=== PATIENT | female | born 1980 | race American Indian/Alaskan Native ===

== ENCOUNTER 2019-11-06 20:07 | Emergency (ER) | payer MEDICARE ==
--- NOTE | 2019-11-06 21:40 | Emergency Department Report ---
Blank Doc - Documentation Documentation: 39-year-old female that presents with bilateral leg swelling and chest pain. Denies any SOB This initial assessment/diagnostic orders/clinical plan/treatment(s) is/are subject to change based on patient's health status, clinical progression and re- assessment by fellow clinical providers in the ED. Further treatment and workup at subsequent clinical providers discretion. Patient/guardians urged not to elope from the ED as their condition may be serious if not clinically assessed and managed. Initial orders include: 1- Patient sent to MAIN ED for further evaluation and treatment 2- cardiac protocol
[2019-11-06 22:13] LABS: Basophils # (Auto) 0.1 K/mm3 (0.0-0.1); Basophils % (Auto) 0.9 % (0.0-1.8); Eosinophils # (Auto) 0.3 K/mm3 (0.0-0.4); Eosinophils % (Auto) 4.1 % (0.0-4.3); Hematocrit 34.2 % (30.3-42.9); Hemoglobin 11.3 gm/dl (10.1-14.3); Lymphocytes # (Auto) 2.5 K/mm3 (1.2-5.4); Lymphocytes % (Auto) 33.1 % (13.4-35.0); Mean Corpuscular HGB Conc 33 % (30-34); Mean Corpuscular Volume 94 fl (79-97); Monocytes # (Auto) 0.7 K/mm3 (0.0-0.8); Monocytes % (Auto) 9.6 % (0.0-7.3); Platelet Count 254 K/mm3 (140-440); Red Blood Count 3.64 M/mm3 (3.65-5.03); Red Cell Distribution Width 13.1 % (13.2-15.2)
[2019-11-06 22:23] LABS: INR 0.9 (0.87-1.13)
[2019-11-06 22:24] LABS: Partial Thromboplastin Time 27.8 Sec. (24.2-36.6)
[2019-11-06 22:36] LABS: Alanine Aminotransferase 17 units/L (7-56); Albumin 3.7 g/dL (3.9-5); BUN/Creatinine Ratio 11; Blood Urea Nitrogen 8 mg/dL (7-17); Calcium 9.1 mg/dL (8.4-10.2); Hemolysis Index 19
[2019-11-06 23:10] LABS: Bacteria,Urine 1+ /HPF (Negative); Bilirubin,Urine NEG (Negative); Blood,Urine NEG (Negative); Color,Urine Yellow (Yellow); Mucus,Urine FEW /HPF; Protein,Urine <15 mg/dL mg/dL (Negative); Urobilinogen,Urine < 2.0 mg/dL (<2.0)
--- NOTE | 2019-11-07 00:06 | XRay Report ---
CHEST 1 VIEW 11/06/2019 10:58 PM INDICATION / CLINICAL INFORMATION: Chest Pain. COMPARISON: None available. FINDINGS: SUPPORT DEVICES: None. HEART / MEDIASTINUM: No significant abnormality. LUNGS / PLEURA: There is left basilar atelectasis. The lungs are otherwise clear. No significant pleu ral effusion. No pneumothorax. ADDITIONAL FINDINGS: No significant additional findings. IMPRESSION: 1. No acute abnormality of the chest. 2. Left basilar atelectasis. Signer Name: Bruno Jiang MD Signed: 11/07/2019 12:02 AM Workstation Name: [id number]
--- NOTE | 2019-11-07 01:15 | Emergency Department Report ---
ED General Adult HPI - General Chief complaint: Extremity Injury, Lower Stated complaint: RT AND LT LEG SWELLING W/PAIN Time Seen by Provider: 11/06/19 21:38 Source: patient, EMS, RN notes reviewed, old records reviewed Mode of arrival: Ambulatory Limitations: No Limitations, Physical Limitation - History of Present Illness Initial comments: During the history and physical examination, I am windows application administrator and escorted by sary Esquivel, curriculum development coordinator The patient is a 39-year-old female. The patient is not known to myself previously. She is currently on a [employer] 1013 hold. She has a history of obesity, sleep apnea, possible substance use, possible hypertension versus dependent edema. The patient presents to the ER with a complaint of nontraumatic bilateral lower extremity pain and swelling. The symptoms have been present for the past day to day and a half. She describes her pain as sharp and throbbing. She describes pain in her bilateral feet, and bilateral lower extremities. She also describes left upper quadrant, and central chest pressure, which does not radiate, present for months. She denies recent travel, surgeries and oral contraceptive use. She denies headache and neck pain, and abdominal pain. She denies irritative and obstructive urinary symptoms, and she denies hematemesis and bright red blood per rectum She was sent to the emergency room by her psychiatric facility to evaluate her for CHF versus DVT. Unfortunately, the patient presented after venous duplex ultrasound had left the building for the day, and we are not able to obtain venous duplex DVT study at this time. -: Gradual, days(s), month(s) Location: chest, left, right, lower extremity Radiation: other Quality: other Consistency: other Improves with: other Worsens with: other Associated Symptoms: other - Related Data Previous Rx's Medication Instructions Recorded Last Taken Type Amoxicillin/K Clav Tab [Augmentin 1 tab PO Q12HR #19 tab 11/07/19 Unknown Rx 875 mg] Allergies Allergy/AdvReac Type Severity Reaction Status Date / Time trazodone Allergy Mild Diarrhea Verified 11/07/19 02:39 ciprofloxacin AdvReac Diarrhea Verified 11/07/19 02:39 ED Review of Systems ROS: Stated complaint: RT AND LT LEG SWELLING W/PAIN Other details as noted in HPI Constitutional: denies: fever Eyes: denies: eye discharge ENT: denies: congestion Respiratory: denies: wheezing Cardiovascular: chest pain, edema Gastrointestinal: denies: abdominal pain, hematemesis, melena, hematochezia Genitourinary: denies: dysuria Musculoskeletal: arthralgia, myalgia Skin: denies: lesions Neurological: denies: weakness Hematological/Lymphatic: denies: easy bleeding ED Past Medical Hx - Past Medical History Hx Hypertension: Yes Additional medical history: sleep apnea - Surgical History Hx Cholecystectomy: Yes Additional Surgical History: BL knee, R hand - Social History Smoking Status: Never Smoker Substance Use Type: None - Medications Home Medications: Home Medications Medication Instructions Recorded Confirmed Last Taken Type Amoxicillin/K Clav Tab [Augmentin 1 tab PO Q12HR #19 tab 11/07/19 Unknown Rx 875 mg] ED Physical Exam - General Limitations: No Limitations General appearance: alert, anxious - Head Head exam: Present: atraumatic, normocephalic - Eye Eye exam: Present: normal appearance, EOMI. Absent: nystagmus - ENT ENT exam: Present: normal exam, normal orophraynx, mucous membranes moist, normal external ear exam - Neck Neck exam: Present: normal inspection, full ROM. Absent: tenderness, meningismus - Respiratory Respiratory exam: Present: normal lung sounds bilaterally, chest wall tenderness. Absent: respiratory distress, wheezes, rales, rhonchi, stridor - Cardiovascular Cardiovascular Exam: Present: normal rhythm, tachycardia, normal heart sounds. Absent: systolic murmur, diastolic murmur, rubs, gallop - GI/Abdominal GI/Abdominal exam: Present: soft. Absent: distended, tenderness, guarding, rigid, pulsatile mass - Extremities Exam Extremities exam: Present: normal inspection, full ROM, pedal edema (2+ edema noted in the bilateral lower extremities. There is no pain with passive range of motion of the great toe), other (2+ pulses noted in the bilateral upper and lower extremities. There is no palpable cord. negative Homans sign. Muscular compartments are soft. The pelvis is stable.). Absent: calf tenderness - Back Exam Back exam: Present: normal inspection, full ROM. Absent: tenderness, CVA tenderness (R), CVA tenderness (L), paraspinal tenderness, vertebral tenderness - Neurological Exam Neurological exam: Present: alert, other (There is no facial droop. The tongue is midline. Extraocular movements are intact bilaterally. There is 5 out of 5 strength in bilateral upper and lower extremities. Sensation is intact to light touch bilateral upper and lower extremities. ). Absent: motor sensory deficit - Psychiatric Psychiatric exam: Present: anxious - Skin Skin exam: Present: warm, dry, intact, normal color. Absent: rash ED Course Vital Signs 11/06/19 11/06/19 11/07/19 19:47 20:24 01:41 Temperature 98.4 F Pulse Rate 115 H Respiratory 20 Rate Blood Pressure 143/56 117/71 Blood Pressure [Left] O2 Sat by Pulse 96 Oximetry 11/07/19 11/07/19 02:32 04:00 Temperature Pulse Rate 111 H 108 H Respiratory 16 16 Rate Blood Pressure Blood Pressure 115/64 107/50 [Left] O2 Sat by Pulse 98 98 Oximetry - Reevaluation(s) Reevaluation #1: 11/07/19 01:42 Differential diagnosis, including but not limited to: DVT, dependent edema, acute coronary syndrome, pneumonia, pulmonary embolism, GERD, gastritis, hiatal hernia Assessment and plan: 39-year-old female presenting with 1-1/2 to 2 days of nontraumatic bilateral lower extremity swelling, reports no DVT or pulmonary embolism risk factors, low risk by Wells criteria, examination not suggestive of cellulitis, compartment syndrome or DVT. Suspect venous insufficiency versus peripheral edema. She is tachycardic with a low-grade temperature, and she endorsed a few weeks to months of chest pain. EKG unchanged x2. Troponin negative x1, repeat troponin pending. Patient low risk for major adverse cardiac event as per heart score. Tachycardia improving. CT scan of the chest is ordered. We will reassess after data points have resulted. Reevaluation #2: 11/07/19 02:58 CT scan of the chest does not show pulmonary embolism or congestive heart failure. Right upper lobe pneumonia is suggested. Patient appears quite comfortable at this time, however, she is still somewhat tachycardic. Additional IV fluids ordered. Reevaluation #3: 11/07/19 04:41 Reassessed multiple times. Sleeping comfortably, and in no significant respiratory distress. Heart rate 105 bpm at this time. Patient suitable for trial of oral outpatient antibiotic management. She can follow-up as an outpatient for lower extremity DVT study. Reevaluation #4: 11/07/19 04:44 Given the preponderance of evidence, this is very unlikely to be a DVT. Therefore, we will withhold systemic anticoagulation. Patient can follow-up for outpatient ultrasound. ED Medical Decision Making - Lab Data Result diagrams: 11/06/19 21:48 11/06/19 21:48 Vital Signs 11/06/19 20:24 Pulse Rate 115 H Respiratory 20 Rate Blood Pressure 117/71 O2 Sat by Pulse 96 Oximetry Lab Results 11/06/19 11/06/19 11/06/19 Range/Units 21:48 21:48 21:48 WBC 7.5 (4.5-11.0) K/mm3 RBC 3.64 L (3.65-5.03) M/mm3 Hgb 11.3 (10.1-14.3) gm/dl Hct 34.2 (30.3-42.9) % MCV 94 (79-97) fl MCH 31 (28-32) pg MCHC 33 (30-34) % RDW 13.1 L (13.2-15.2) % Plt Count 254 (140-440) K/mm3 Lymph % (Auto) 33.1 (13.4-35.0) % Hayes % (Auto) 9.6 H (0.0-7.3) % Eos % (Auto) 4.1 (0.0-4.3) % Baso % (Auto) 0.9 (0.0-1.8) % Lymph # 2.5 (1.2-5.4) K/mm3 Hayes # 0.7 (0.0-0.8) K/mm3 Eos # 0.3 (0.0-0.4) K/mm3 Baso # 0.1 (0.0-0.1) K/mm3 Seg Neutrophils % 52.3 (40.0-70.0) % Seg Neutrophils # 3.9 (1.8-7.7) K/mm3 PT 12.2 (12.2-14.9) Sec. INR 0.90 (0.87-1.13) APTT 27.8 (24.2-36.6) Sec. D-Dimer (0-234) ng/mlDDU Sodium 140 (137-145) mmol/L Potassium 3.5 L (3.6-5.0) mmol/L Chloride 96.7 L (98-107) mmol/L Carbon Dioxide 28 (22-30) mmol/L Anion Gap 19 mmol/L BUN 8 (7-17) mg/dL Creatinine 0.7 (0.7-1.2) mg/dL Estimated GFR > 60 ml/min BUN/Creatinine Ratio 11 % Glucose 129 H (65-100) mg/dL Calcium 9.1 (8.4-10.2) mg/dL Total Bilirubin 0.30 (0.1-1.2) mg/dL AST 21 (5-40) units/L ALT 17 (7-56) units/L Alkaline Phosphatase 64 (35-129) units/L Troponin T < 0.010 (0.00-0.029) ng/mL NT-Pro-B Natriuret Pep 23.71 (0-450) pg/mL Total Protein 7.2 (6.3-8.2) g/dL Albumin 3.7 L (3.9-5) g/dL Albumin/Globulin Ratio 1.1 % HCG, Qual (Negative) Urine Color (Yellow) Urine Turbidity (Clear) Urine pH (5.0-7.0) Ur Specific [place] (1.003-1.030) Urine Protein (Negative) mg/dL Urine Glucose (UA) (Negative) mg/dL Urine Ketones (Negative) mg/dL Urine Blood (Negative) Urine Nitrite (Negative) Urine Bilirubin (Negative) Urine Urobilinogen (<2.0) mg/dL Ur Leukocyte Esterase (Negative) Urine WBC (Auto) (0.0-6.0) /HPF Urine RBC (Auto) (0.0-6.0) /HPF U Epithel Cells (Auto) (0-13.0) /HPF Urine Bacteria (Auto) (Negative) /HPF Urine Mucus /HPF Urine Yeast (Budding) /HPF 11/06/19 11/06/19 11/07/19 Range/Units 21:48 22:30 01:07 WBC (4.5-11.0) K/mm3 RBC (3.65-5.03) M/mm3 Hgb (10.1-14.3) gm/dl Hct (30.3-42.9) % MCV (79-97) fl MCH (28-32) pg MCHC (30-34) % RDW (13.2-15.2) % Plt Count (140-440) K/mm3 Lymph % (Auto) (13.4-35.0) % Hayes % (Auto) (0.0-7.3) % Eos % (Auto) (0.0-4.3) % Baso % (Auto) (0.0-1.8) % Lymph # (1.2-5.4) K/mm3 Hayes # (0.0-0.8) K/mm3 Eos # (0.0-0.4) K/mm3 Baso # (0.0-0.1) K/mm3 Seg Neutrophils % (40.0-70.0) % Seg Neutrophils # (1.8-7.7) K/mm3 PT (12.2-14.9) Sec. INR (0.87-1.13) APTT (24.2-36.6) Sec. D-Dimer 475.4 H (0-234) ng/mlDDU Sodium (137-145) mmol/L Potassium (3.6-5.0) mmol/L Chloride (98-107) mmol/L Carbon Dioxide (22-30) mmol/L Anion Gap mmol/L BUN (7-17) mg/dL Creatinine (0.7-1.2) mg/dL Estimated GFR ml/min BUN/Creatinine Ratio % Glucose (65-100) mg/dL Calcium (8.4-10.2) mg/dL Total Bilirubin (0.1-1.2) mg/dL AST (5-40) units/L ALT (7-56) units/L Alkaline Phosphatase (35-129) units/L Troponin T (0.00-0.029) ng/mL NT-Pro-B Natriuret Pep (0-450) pg/mL Total Protein (6.3-8.2) g/dL Albumin (3.9-5) g/dL Albumin/Globulin Ratio % HCG, Qual Negative (Negative) Urine Color Yellow (Yellow) Urine Turbidity Clear (Clear) Urine pH 6.0 (5.0-7.0) Ur Specific [place] 1.011 (1.003-1.030) Urine Protein <15 mg/dl (Negative) mg/dL Urine Glucose (UA) Neg (Negative) mg/dL Urine Ketones Neg (Negative) mg/dL Urine Blood Neg (Negative) Urine Nitrite Neg (Negative) Urine Bilirubin Neg (Negative) Urine Urobilinogen < 2.0 (<2.0) mg/dL Ur Leukocyte Esterase Sm (Negative) Urine WBC (Auto) 1.0 (0.0-6.0) /HPF Urine RBC (Auto) 4.0 (0.0-6.0) /HPF U Epithel Cells (Auto) 1.0 (0-13.0) /HPF Urine Bacteria (Auto) 1+ (Negative) /HPF Urine Mucus Few /HPF Urine Yeast (Budding) Few /HPF - EKG Data -: EKG Interpreted by Wi EKG shows normal: sinus rhythm Rate: normal - EKG Data When compared to previous EKG there are: previous EKG unavailable 11/07/19 01:41 EKG #1 shows a sinus tachycardia, 113 bpm, normal axis, borderline atrial enlargement, no prior for comparison, not a STEMI. QTC 465 ms, EKG #2 shows a sinus tachycardia, 102 bpm, unremarkable EKG, normal axis, QTC 461 ms, not consistent with STEMI - Radiology Data Radiology results: report reviewed, image reviewed Print Report Referring Physician: MARIO WALTERS Patient Name: STEPH CASSIDY Date of : 1980 Sex: Female Report Date: 2019-11-07 Report Status: [place] [address] XRay Report Signed Patient: STEPH CASSIDY MR#: [id number] : 1980 ct:[id number] Age/Sex: 39 / F ADM Date: 11/06/19 Loc: ED Attending Dr: Ordering Physician: MARIO WALTERS NP Date of Service: 11/06/19 Procedure(s): XR chest 1V ap Accession Number(s): [id number] cc: MARIO WALTERS NP Fluoro Time In Minutes: CHEST 1 VIEW 11/06/2019 10:58 PM INDICATION / CLINICAL INFORMATION: Chest Pain. COMPARISON: None available. FINDINGS: SUPPORT DEVICES: None. HEART / MEDIASTINUM: No significant abnormality. LUNGS / PLEURA: There is left basilar atelectasis. The lungs are otherwise clear. No significant pleural effusion. No pneumothorax. ADDITIONAL FINDINGS: No significant additional findings. IMPRESSION: 1. No acute abnormality of the chest. 2. Left basilar atelectasis. Signer Name: Bruno Jiang MD Signed: 11/07/2019 12:02 AM Workstation Name: [id number] Transcribed By: MN Dictated By: Bruno Jiang MD Electronically Authenticated By: Bruno Jiang MD Signed Date/Time: 11/07/19 0002 DD/ 0001 Print Report Referring Physician: SONAL BLANK Patient Name: STEPH CASSIDY Date of : 1980 Sex: Female Report Date: 2019-11-07 Report Status: Finalized Findings [facility] [address] [place] [address] Cat Scan Report Signed Patient: STEPH CASSIDY MR#: [id number] : 1980 Acct:[id number] Age/Sex: 39 / F ADM Date: 11/06/19 Loc: ED Attending Dr: Ordering Physician: SONAL BLANK MD Date of Service: 11/07/19 Procedure(s): CT angio chest Accession Number(s): [id number] cc: SONAL BLANK MD CTA CHEST WITH IV CONTRAST INDICATION: Chest pain, tachycardia, elevated d-dimer, swollen leg. TECHNIQUE: Axial CT images were obtained through the chest after injection of 100 cc Omnipaque 350 IV contrast. 3 plane MIP reconstructions were produced. All CT scans at this location are performed using CT dose reduction for ALARA by means of automated exposure control. COMPARISON: One view of the chest from 11/06/2019. FINDINGS: PULMONARY ARTERIES: Well-opacified without distinct thromboemboli. AORTA AND ARTERIES: No acute abnormality. MEDIASTINUM: The thyroid gland is unremarkable. The trachea and main bronchi are patent and normal in caliber. No mass or lymphadenopathy. Normal heart size without a pericardial effusion. LUNGS: There is bibasilar atelectasis. Consolidations/ground glass opacities are noted posteriorly along the right upper lobe. The lungs are otherwise clear. No pneumothorax or pleural effusion. ADDITIONAL FINDINGS: None. UPPER ABDOMEN: No acute findings. BONES: No significant osseous abnormality. IMPRESSION: 1. No CT evidence for pulmonary embolism. 2. Suspected right upper lobe pneumonia. Follow-up PA and lateral chest radiographs in 2-3 weeks are recommended. Signer Name: Bruno Jiang MD S igned: 11/07/2019 2:41 AM Workstation Name: [id number] Transcribed By: MN Dictated By: Bruon Jiang MD Electronically Authenticated By: Bruno Jiang MD Signed Date/Time: 11/07/19240 DD/ 8 Critical care attestation.: If time is entered above; I have spent that time in minutes in the direct care of this critically ill patient, excluding procedure time. ED Disposition Clinical Impression: Swelling of lower extremity, Right upper lobe consolidation Disposition: DC/TX-65 PSY HOSP/PSY UNIT Is pt being admited?: No Does the pt Need Aspirin: No Condition: Stable Additional Instructions: Do not take metformin medication for the next 2 days, if patient takes this medication. Patient appears to possibly have obstructive sleep apnea, she should be on a CPAP or BiPAP at night. Take the antibiotics as directed, patient will have to follow-up as an outpatient in our outpatient vascular lab center during the hours of 8 AM to 3 PM to obtain a bilateral lower extremity DVT study. Please contact the phone number on the requisition sheet to arrange this outpatient study. Take the antibiotics as directed, recommend medical follow-up in the next 2 to 3 days for repeat checkup and evaluation. Advance diet as tolerated, and avoid sedating medications. Return to the emergency room right away with new, worsened or different symptoms, or symptoms not present on the initial emergency room evaluation. Prescriptions: Amoxicillin/K Clav Tab [Augmentin 875 mg] 1 tab PO Q12HR #19 tab Referrals: JOSE CARLOS GUSTAFSON MD [Staff Physician] - 3-5 Days [facility] [Provider Group] - 3-5 Days
[2019-11-07] MEDS: ACETAMINOPHEN 500 MG TAB PO ONE (02:05)
[2019-11-07] MEDS: SODIUM CHLORIDE 0.9% 500 ML 500 ML IV ONE (02:05)
[2019-11-07] MEDS: MORPHINE 4 MG/1 ML INJ IM ONE (02:29)
[2019-11-07] MEDS: KETOROLAC 30 MG/1 ML INJ IV ONE (02:29)
[2019-11-07] MEDS: POTASSIUM CHLORIDE ER 20 MEQ TAB PO ONE (02:29)
--- NOTE | 2019-11-07 02:46 | Cat Scan Report ---
CTA CHEST WITH IV CONTRAST INDICATION: Chest pain, tachycardia, elevated d-dimer, swollen leg. TECHNIQUE: Axial CT images were obtained through the chest after injection of 100 cc Omnipaque 350 IV contrast. 3 plane MIP reconstructions were produced. All CT scans at this location are performed using CT dose reduction for ALARA by means of automated exposure control. COMPARISON: One view of the chest from 11/06/2019. FINDINGS: PULMONARY ARTERIES: Well-opacified without distinct thromboemboli. AORTA AND ARTERIES: No acute abnormality. MEDIASTINUM: The thyroid gland is unremarkable. The trachea and main bronchi are patent and normal in caliber. No mass or lymphadenopathy. Normal heart size without a pericardial effusion. LUNGS: There is bibasilar atelectasis. Consolidations/ground glass opacities are noted posteriorly al candice the right upper lobe. The lungs are otherwise clear. No pneumothorax or pleural effusion. ADDITIONAL FINDINGS: None. UPPER ABDOMEN: No acute findings. BONES: No significant osseous abnormality. IMPRESSION: 1. No CT evidence for pulmonary embolism. 2. Suspected right upper lobe pneumonia. Follow-up PA and lateral chest radiographs in 2-3 weeks are recommended. Signer Name: Bruno Jiang MD Signed: 11/07/2019 2:41 AM Workstation Name: [id number]
[2019-11-07] MEDS: LORazepam 2 MG/ML VIAL IV STA (03:13)
[2019-11-07] MEDS: SODIUM CHLORIDE 0.9% 1000 ML 2,000 ML IV ONE (03:13)
[2019-11-07] MEDS ORDERED: AMOXICILLIN/K CLAV 875/125MG TAB ONE (04:53)
[2019-11-07] MEDS: AMOXICILLIN/K CLAV 875/125MG TAB PO ONE (05:11)
[2019-11-07 06:57] VITALS: BP 91/58
== END 2019-11-07 08:25 ==
LOC: ED 20:07
DX: M79.89 Other specified soft tissue disorders (principal); J18.1 Lobar pneumonia, unspecified organism; I10 Essential (primary) hypertension; Z79.2 Long term (current) use of antibiotics; Z88.8 Allergy status to other drugs, medicaments and biological substances
CPT/HCPCS: 36415; 71045; 71275; 80053; 81001; 82550; 83880; 84484; 84703; 85025; 85379; 85610; 85730; 93005; 93010; 96372; 96374; 96375; 99285; J1885; J2060; J2270; J7030; J7040; Q9967

== ENCOUNTER 2019-11-14 15:10 | Emergency (ER) | payer MEDICARE ==
--- NOTE | 2019-11-14 16:25 | Event Note ---
ED Screening Note Date of service: 11/14/19 Time: 16:16 ED Screening Note: This is a 39 y.o. F. that presents to the ER with BLE swelling for 2 weeks. This initial assessment/diagnostic orders/clinical plan/treatment(s) is/are subject to change based on patients health status, clinical progression and re- assessment by fellow clinical providers in the ED. Further treatment and workup at subsequent clinical providers discretion. Patient/guardian urged not to elope from the ED as their condition may be serious if not clinically assessed and managed. Initial orders include: Labs, EKG, and CXR
--- NOTE | 2019-11-14 16:49 | XRay Report ---
CHEST 2 VIEWS INDICATION / CLINICAL INFORMATION: edema. COMPARISON: Chest x-ray on 11/06/2019 FINDINGS: SUPPORT DEVICES: None. HEART / MEDIASTINUM: No significant abnormality. LUNGS / PLEURA: Stable left basilar linear scarring versus subsegmental atelectasis. Stable mild righ t upper lobe parenchymal opacification. No pneumothorax. ADDITIONAL FINDINGS: No significant additional findings. IMPRESSION: 1. Stable left basilar linear scarring and right upper lobe opacification. No adverse change from 10/25. Signer Name: Drake Walter MD Signed: 11/14/2019 4:45 PM Workstation Name: [id number]
[2019-11-14 16:53] LABS: Basophils % (Auto) 0.7 % (0.0-1.8); Eosinophils # (Auto) 0.6 K/mm3 (0.0-0.4); Hematocrit 32.5 % (30.3-42.9); Hemoglobin 10.8 gm/dl (10.1-14.3); Lymphocytes # (Auto) 1.9 K/mm3 (1.2-5.4); Mean Corpuscular HGB Conc 33 % (30-34); Mean Corpuscular Volume 94 fl (79-97); Monocytes # (Auto) 0.8 K/mm3 (0.0-0.8); Monocytes % (Auto) 11.3 % (0.0-7.3); Platelet Count 303 K/mm3 (140-440); Red Blood Count 3.47 M/mm3 (3.65-5.03); Red Cell Distribution Width 12.9 % (13.2-15.2)
[2019-11-14 17:18] LABS: Alanine Aminotransferase 25 units/L (7-56); Albumin 3.6 g/dL (3.9-5); BUN/Creatinine Ratio 13; Blood Urea Nitrogen 9 mg/dL (7-17); Calcium 9.2 mg/dL (8.4-10.2); Hemolysis Index 4
[2019-11-14] MEDS ORDERED: MORPHINE 4 MG/1 ML INJ IV ONE (17:56)
[2019-11-14] MEDS ORDERED: FUROSEMIDE 40 MG/4 ML INJ IV ONE (17:56)
--- NOTE | 2019-11-14 18:47 | Emergency Department Report ---
HPI - General Chief Complaint: Extremity Injury, Lower Time Seen by Provider: 11/14/19 16:14 - HPI HPI: 39-year-old -[place] female presents to the emergency department from her psychiatric partial hospitalization program with a complaint of a 2-week history of bilateral lower extremity swelling and discomfort. The patient was seen here 1 week ago for the lower extremity swelling and discomfort. At that time she was found to have nonspecific lower extremity edema and was discharged back to her psychiatric facility with instructions to follow-up for outpatient lower extremity venous Doppler ultrasound. The patient has not had this venous Doppler ultrasound done at this time. She has a known history of hypertension for which she takes some type of blood pressure medication that has HCTZ in it as well. The patient also says that she is on Lasix 20 mg daily but denies any history of CHF. She does not have a primary care physician and is only in this area for the psychiatric treatment. She denies any fever, chest pain, shortness of breath, abdominal pain, back pain. ED Past Medical Hx - Past Medical History Hx Hypertension: Yes Hx Psychiatric Treatment: Yes (bipolar, ADHD) Additional medical history: sleep apnea - Surgical History Hx Cholecystectomy: Yes Additional Surgical History: BL knee, R hand - Social History Smoking Status: Never Smoker Substance Use Type: None - Medications Home Medications: Home Medications Medication Instructions Recorded Confirmed Last Taken Type Amoxicillin/K Clav Tab [Augmentin 1 tab PO Q12HR #19 tab 11/07/19 Unknown Rx 875 mg] ED Review of Systems ROS: Stated complaint: FEET PAIN Other details as noted in HPI Comment: All other systems reviewed and negative Constitutional: denies: chills, fever Eyes: denies: eye pain, vision change ENT: denies: ear pain, throat pain Respiratory: denies: cough, shortness of breath Cardiovascular: edema. denies: chest pain, palpitations Gastrointestinal: denies: abdominal pain, vomiting Genitourinary: denies: dysuria, discharge Musculoskeletal: myalgia. denies: back pain Skin: denies: rash, lesions Neurological: denies: weakness, numbness Physical Exam - Physical Exam Vital Signs: Vital Signs 11/14/19 15:13 Temperature 99.6 F Pulse Rate 107 H Respiratory 18 Rate Blood Pressure 125/69 O2 Sat by Pulse 99 Oximetry Physical Exam: GENERAL: The patient is well-developed well-nourished. HENT: Normocephalic. Atraumatic. Patient has moist mucous membranes. EYES: Extraocular motions are intact. NECK: Supple. Trachea is midline. CHEST/LUNGS: Clear to auscultation. There is no respiratory distress noted. HEART/CARDIOVASCULAR: Regular. There is no tachycardia. There is no murmur. ABDOMEN: Abdomen is soft, nontender. Patient has normal bowel sounds. SKIN: Skin is warm and dry. 2+ pitting edema to the bilateral lower extremities from the knees distally. NEURO: The patient is awake, alert, and oriented. The patient is cooperative. The patient has no focal neurologic deficits. Normal speech. MUSCULOSKELETAL: There is some tenderness to palpation to the bilateral feet and distal lower extremities but no obvious deformity. There is no limitation range of motion. There is no evidence of acute injury. ED Course Vital Signs 11/14/19 15:13 Temperature 99.6 F Pulse Rate 107 H Respiratory 18 Rate Blood Pressure 125/69 O2 Sat by Pulse 99 Oximetry ED Medical Decision Making - Lab Data Result diagrams: 11/14/19 16:39 11/14/19 16:39 - EKG Data -: EKG Interpreted by Nv EKG shows normal: sinus rhythm, axis, intervals, QRS complexes, ST-T waves Rate: normal - EKG Data When compared to previous EKG there are: no significant change Interpretation: normal EKG - Radiology Data Radiology results: image reviewed interpreted by me: Chest x-ray does not show any acute process. There are no pleural effusions, obvious pneumonia and there is no pneumothorax. - Medical Decision Making This patient returns with the same complaint of bilateral lower extremity swelling and discomfort that she was seen here for about 1 week ago. However this time the patient has no complaints of any chest pain, back pain, shortness of breath. On examination she does have 2+ pitting edema to the lower extremities from the knees distally. Patient's labs have been unremarkable including CBC, metabolic panel and BNP. It does not appear consistent with congestive heart failure. Chest x-ray also does not show any pleural effusions or any other acute process. Vital signs stable throughout her ED course. The patient was given an IV dose of Lasix to assist with diuresis. I am unable to obtain a bilateral lower extremity venous Doppler ultrasound this evening. The patient never followed up after her last visit for the outpatient Doppler ultrasound. Since her symptoms have been going on for the past 2 weeks, she do es not appear to need any acute anticoagulation. However she has once again been set up for outpatient venous Doppler ultrasound tomorrow which she should be able to go to as she is now in the partial hospitalization program instead of involuntary inpatient psychiatric admission. If positive, the patient will be redirected to the emergency department. If negative, she has been instructed to follow-up with a primary care physician. She will continue with her Lasix, elevate her legs, decrease salt intake. She will also return to the ER with any worsening of her symptoms or any acute distress. - Differential Diagnosis CHF, venous stasis, cellulitis, DVT Critical Care Time: No Critical care attestation.: If time is entered above; I have spent that time in minutes in the direct care of this critically ill patient, excluding procedure time. ED Disposition Clinical Impression: Swelling of lower extremity Disposition: DC-01 TO HOME OR SELFCARE Is pt being admited?: No Condition: Stable Instructions: Leg Edema (ED) Additional Instructions: You are being set up to return tomorrow for bilateral lower extremity ultrasound to rule out DVT/blood clots in your legs. If positive, you will be redirected to the emergency department for further evaluation and treatment. If negative, please follow-up with a primary care physician in the next few days. I do not want you to be immobile, but when you are resting you should keep your legs elevated. Continue taking your Lasix. Try to decrease salt intake. Return to the emergency department immediately with any worsening of your symptoms, development of chest pain or shortness of breath, or with any acute distress. Referrals: PRIMARY CARE, [Primary Care Provider] - 2-3 Days Time of Disposition: 19:48
[2019-11-14 19:31] LABS: Bacteria,Urine 1+ /HPF (Negative); Bilirubin,Urine NEG (Negative); Blood,Urine NEG (Negative); Color,Urine Yellow (Yellow); Protein,Urine <15 mg/dL mg/dL (Negative); Urobilinogen,Urine < 2.0 mg/dL (<2.0)
[2019-11-14 19:44] VITALS: BP 115/70
== END 2019-11-14 20:29 | disposition home or self-care (01) ==
LOC: ED 15:10
DX: L08.9 Local infection of the skin and subcutaneous tissue, unspecified (principal); I10 Essential (primary) hypertension; F31.9 Bipolar disorder, unspecified; F90.9 Attention-deficit hyperactivity disorder, unspecified type; Z79.2 Long term (current) use of antibiotics; Z88.8 Allergy status to other drugs, medicaments and biological substances; Z88.1 Allergy status to other antibiotic agents
CPT/HCPCS: 36415; 71046; 80053; 81001; 83880; 85025; 93005; 93010; 96374; 96375; 99284; J1940; J2270